=== PATIENT | female | born 1960 | race Two or more races ===

== ENCOUNTER 2024-12-13 10:55 | Day surgery (SDC) | payer OTHER ==
[2024-12-09 10:04] VITALS: BP 146/94
[2024-12-09 10:05] LABS: BASO % 0.6 % (0.1-1.2); EOS # 0.17 (0.04-0.54); EOS % 2.7 % (0.7-7.0); LYMPH # 1.96 (1.18-3.74); LYMPH % 31.6 % (19.3-53.1); MEAN PLATELET VOLUME 10.80 fl (9.4-12.4); MONO # 0.38 (0.24-0.82); MONO % 6.1 % (4.7-12.5); NEUT # 3.65 (1.56-6.13); NEUT % 58.8 % (34.0-71.1); RED CELL DISTRIBUTION WIDTH 13.1 % (11.6-14.4)
[2024-12-09 10:14] LABS: URINE APPEARANCE Cloudy; URINE BILIRRUBIN Negative (NEGATIVE); URINE BLOOD Negative; URINE COLOR Yellow; URINE GLUCOSE Negative (NEGATIVE); URINE KETONE Negative (NEGATIVE); URINE LEUKOCYTE Negative; URINE NITRATE Negative; URINE PROTEIN Negative (NEGATIVE); URINE UROBILINOGEN 0.2 E.U./dl
[2024-12-09 10:18] LABS: URINE BACTERIA 4.7 uL (0.0-1933); URINE RBC 5.4 uL (0.0-20.8)
[2024-12-09 10:30] LABS: INR 0.98
[2024-12-09 10:38] LABS: ALT/SGPT 27.0 U/L (12-78); AST/SGOT 16.0 U/L (15-37); BILIRUBIN TOTAL 0.69 mg/dL (0.3-1.2); BUN CREA RATIO 14.0 (7.0-25.0); CREATININE SERUM 0.83 mg/dL (0.55-1.02); GFR 68.99; GLOBULINA 4.3 G/DL (2.4-3.5); GLUCOSE FASTING 91.0 mg/dL (65-100); OSMOLALITY SERUM 284.0 MOSM/KG (275-295)
[2024-12-09 10:45] LABS: URINE CAST 0.14 uL (0.0-1.40); URINE EPITHELIAL CELLS 1.2 uL (0.0-38.8); URINE WBC 1.5 uL (0.0-23.2)
[~2024-12-13] VITALS: Ht 157.5 cm; Wt 86.2 kg
[~2024-12-13 10:55] MED LIST: ROSUVASTATIN CAL5 MG PO; ZESTRIL10 M1 PO
[2024-12-13] MEDS ORDERED: POVIDONE-IODINE 118 ML BOTT TOP ONE (12:45)
[2024-12-13] MEDS ORDERED: ONDANSETRON HCL 2 MG/ML VIAL IV ONE (13:00)
[2024-12-13] MEDS ORDERED: KETOROLAC TROMETHAMINE 30 MG VIAL IV ONE (13:00)
[2024-12-13 16:33] VITALS: BP 157/82; O2SAT 100
== END 2024-12-13 17:35 | disposition home or self-care (01) ==
LOC: CIR.AMB 10:55
PROVIDERS: ATTEND Obstetrics & Gynecology
DX: N95.0 Postmenopausal bleeding (principal); D25.0 Submucous leiomyoma of uterus